=== PATIENT | male | born 1980 | race Caucasian/White ===

== ENCOUNTER 2021-03-13 06:06 | Day surgery (SDC) | payer OTHER ==
[~2021-03-13 06:06] MED LIST: ceFAZolin/STERILE WATER 2 GM/20 ML SYRINGE IV NR
[2021-03-13] MEDS ORDERED: LACTATED RINGERS 1,000 ML ONE (06:39)
[2021-03-13] MEDS ORDERED: fentaNYL 250 MCG/5 ML INJ ONE (07:02)
[2021-03-13] MEDS ORDERED: ROCURONIUM 50 MG/5 ML INJ IV ONE (07:02)
[2021-03-13] MEDS ORDERED: dexAMETHasone 20 MG/5 ML VIAL ONE (07:02)
[2021-03-13] MEDS ORDERED: ONDANSETRON 4 MG/2 ML INJ ONE (07:02)
[2021-03-13] MEDS ORDERED: LIDOCAINE MPF (2%) 20 MG/1 ML VIAL 5 ML ONE (07:02)
[2021-03-13] MEDS ORDERED: propofoL 200 MG/20 ML VIAL IV ONE (07:02)
[2021-03-13] MEDS ORDERED: SUCCINYLCHOLINE CHLORIDE 200 MG/10 ML INJ MDV ONE (07:02)
[2021-03-13] MEDS ORDERED: ePHEDrine SULFATE 50 MG/1 ML INJ ONE (07:03)
[2021-03-13] MEDS ORDERED: SUGAMMADEX SODIUM 200 MG/2 ML VIAL IV ONE (07:17)
[2021-03-13] MEDS ORDERED: LACTATED RINGERS 1,000 ML IV SCH (07:20)
--- NOTE | 2021-03-13 07:29 | Anesthesia Consultation ---
Anesthesia Consult and Med Hx Date of service: 03/13/21 - Airway Anesthetic Teeth Evaluation: Good ROM Head & Neck: Adequate Mental/Hyoid Distance: Adequate Mallampati Class: Class III Intubation Access Assessment: Possibly Difficult - Pulmonary Exam CTA: Yes - Cardiac Exam Cardiac Exam: RRR - Pre-Operative Health Status ASA Pre-Surgery Classification: ASA2 Proposed Anesthetic Plan: General Nerve Block: TAP - Pulmonary Hx Smoking: Yes (QUIT SMOKING 13 YEARS AGO) Hx Respiratory Symptoms: No - Cardiovascular System Hx Hypertension: No Hx Cardia Arrhythmia: No - Central Nervous System Hx Neuromuscular Disorder: No Hx Psychiatric Problems: No - Gastrointestinal Hx Gastroesophageal Reflux Disease: No - Endocrine Hx Renal Disease: No Hx Liver Disease: No - Other Systems Hx Alcohol Use: No Hx Substance Use: No Hx Cancer: No - Additional Comments Anesthesia Medical History Comments: No GAC. No FHAC. Small mouth. Patient permission given for EMT student participation.
[2021-03-13] MEDS ORDERED: MIDAZOLAM 2 MG/2 ML INJ ONE (07:40)
[2021-03-13] MEDS ORDERED: LIDOCAINE 1%/EPINEPHRINE 1:100,000 VIAL (20 ML) INFILTRATI ONE ×2 (07:40→08:49)
[2021-03-13] MEDS ORDERED: BUPIVACAINE/PF (0.5%) 5 MG/1 ML 30 ML VIAL INFILTRATI ONE ×2 (07:40→08:48)
--- NOTE | 2021-03-13 07:44 | Anesthesia Day of Surgery ---
Anesthesia Day of Surgery - Day of Surgery Patient Examined: Yes Patient H&P Reviewed: Yes Patient is NPO: Yes
[2021-03-13] MEDS ORDERED: HYDROmorphone 1 MG/1 ML INJ IV PRN ×2 (08:00)
[2021-03-13] MEDS ORDERED: ONDANSETRON 4 MG/2 ML INJ IV PRN (08:00)
[2021-03-13] MEDS ORDERED: SODIUM CHLORIDE 0.9% IRR 1,500 ML BOTTLE IR ONE (08:49)
[2021-03-13] MEDS ORDERED: HYDROmorphone 1 MG/1 ML INJ ONE (10:08)
[2021-03-13] MEDS ORDERED: dexAMETHasone 4 MG/ML VIAL ONE (10:18)
[2021-03-13] MEDS ORDERED: BUPIVACAINE/PF (0.25%) 2.5 MG/ML 30 ML VIAL INFILTRATI ONE (10:18)
--- NOTE | 2021-03-13 11:08 | Operative Report ---
Operative Report Operative Report: Date: 03/13/2021 Preop diagnosis: Large scrotal hernia right side. Postop diagnosis: Same Procedure: Open right groin exploration with partial omentectomy and onlay mesh repair of right inguinal hernia Surgeon: Dr. Franco Scalping Machine Operator: Dr. Lozada Anesthesia: KARLEY Estimated blood loss: 30 cc Specimen: Partial omentectomy and hernia sac. Findings: This is a 40-year-old white male patient with a longstanding right inguinal hernia with a scrotal component that is reducible. CT scans indicate the incarceration is entirely made of of the omentum. Patient is taken to the OR and under general tracheal anesthesia timeout completed consent is on the chart. A De Leon catheter is placed. The abdomen is shaved and prepped with ChloraPrep. A right groin incision is made with a #15 scalpel. Electrocautery was used to divide the subcutaneous tissue. The external plan aponeurosis is divided sharply. The large hernia is encountered and the sac is entered. A partial omentectomy was then done between large Nayana clamps using 2-0 Vicryl ties. The residual omentum was then reduced through the hernia. Cord structures are identified and preserved and then looped with a Ross drain. The ilioinguinal nerve is also identified and preserved. The sac is excised. It is opening at the the hernia is closed with a pursestring of 2-0 Vicryl suture. A Marlex mesh with a keyhole precut is used for the repair. It is sutured in place with a 2-0 Prolene suture. The nerve and the cord structures are allowed to come through the keyhole opening. The external oblique aponeurosis reapproximated with a 2-0 Vicryl stitch. 2-0 Vicryl was then used to reapproximate the subcutaneous tissue. The skin is clos ed with 4-0 Monocryl and Dermabond. The procedure is ended. Patient tolerated seizure well.
[2021-03-13] MEDS ORDERED: HYDROcodone/ACETAMINOPHEN 7.5-325MG TAB PO PRN (11:15)
[2021-03-13 12:06] VITALS: BP 103/59
--- NOTE | 2021-03-13 19:27 | Post Anesthesia Evaluation ---
- Post Anesthesia Evaluation Patient Participated: Yes Airway Patent: Yes Stable Respiratory Function: Yes Nausea/Vomiting: No Temp > 96.8F: Yes Pain Manageable: Yes Adequeate Hydration: Yes Anesthesia Complications: No Block Receding Appropriately: No (Just did it postop) Patient on Ventilator: No
== END 2021-03-13 12:40 | disposition home or self-care (01) ==
LOC: OR 06:06
PROVIDERS: ATTEND Surgery
DX: K40.30 Unilateral inguinal hernia, with obstruction, without gangrene, not specified as recurrent (principal); K21.9 Gastro-esophageal reflux disease without esophagitis; F41.9 Anxiety disorder, unspecified; Z80.1 Family history of malignant neoplasm of trachea, bronchus and lung; Z98.890 Other specified postprocedural states; Z82.49 Family history of ischemic heart disease and other diseases of the circulatory system
CPT/HCPCS: 49507; 88302; 88305; C1781; J0330; J0690; J1100; J1170; J2250; J2405; J2704; J3010; J3490; J7120

== ENCOUNTER 2021-07-24 10:01 | Outpatient (CLI) | payer OTHER ==
[2021-07-24 10:56] LABS: Alanine Aminotransferase 31 units/L (7-56); Albumin 4.6 g/dL (3.9-5); BUN/Creatinine Ratio 24; Blood Urea Nitrogen 19 mg/dL (9-20); Chol/HDL Ratio 3.74 %; HDL Cholesterol 31 mg/dL (40-59); Hemolysis Index 1; LDL Cholesterol,Direct 72 mg/dL (50-130)
[2021-07-24 11:16] LABS: Basophils % (Auto) 0.8 % (0.0-1.8); Eosinophils # (Auto) 0.1 K/mm3 (0.0-0.4); Eosinophils % (Auto) 1.7 % (0.0-4.3); Lymphocytes # (Auto) 1.4 K/mm3 (1.2-5.4); Lymphocytes % (Auto) 24.6 % (13.4-35.0); Mean Corpuscular HGB Conc 30 % (32-34); Monocytes # (Auto) 0.6 K/mm3 (0.0-0.8); Monocytes % (Auto) 10.5 % (0.0-7.3); Platelet Count 207 K/mm3 (140-440); Red Blood Count 5.75 M/mm3 (3.65-5.03)
[2021-07-24 11:19] LABS: Hematocrit 38.9 % (35.5-45.6); Hemoglobin 11.8 gm/dl (11.8-15.2); Mean Corpuscular Volume 68 fl (84-94)
[2021-07-24 11:20] LABS: Red Cell Distribution Width 20.6 % (13.2-15.2)
== END 2021-07-24 10:02 | disposition home or self-care (01) ==
LOC: LAB 10:01
PROVIDERS: ATTEND Internal Medicine
DX: Z00.00 Encounter for general adult medical examination without abnormal findings (principal); E78.5 Hyperlipidemia, unspecified; E55.9 Vitamin D deficiency, unspecified; R53.83 Other fatigue; E66.9 Obesity, unspecified; R73.9 Hyperglycemia, unspecified
CPT/HCPCS: 36415; 80053; 80061; 82306; 83036; 84443; 85025